=== PATIENT | female | born 1980 | race Caucasian/White ===

== ENCOUNTER 2021-12-23 09:02 | Emergency (ER) | payer BC, OTHER ==
[~2021-12-23] VITALS: Ht 160 cm; Wt 117.9 kg
[~2021-12-23 09:02] MED LIST: NORE1TAB72 PO
[2021-12-23 09:10] VITALS: BP_SYST 129
[2021-12-23 12:14] VITALS: BP_SYST 116
== END 2021-12-23 11:52 | disposition home or self-care (01) ==
LOC: SED 09:02
DX: M62.831 Muscle spasm of calf (principal); R03.0 Elevated blood-pressure reading, without diagnosis of hypertension; Z79.899 Other long term (current) drug therapy
CPT/HCPCS: 93971; 99284